=== PATIENT | female | born 1975 ===

== ENCOUNTER 2020-05-08 05:40 | Inpatient (IN) ==
[2020-05-08] MEDS ORDERED: Lactated Ringers 1000 ml BAG 1,000 ML IV SCH (06:00)
[2020-05-08] MEDS ORDERED: Buffered Lidocaine 1% SYRIN 1 ml INTRADERM ONE ×2 (06:00→06:18)
[2020-05-08] MEDS ORDERED: Famotidine IV 10 MG/ML 2 ml VIAL (20 mg) IV ONE (06:00)
[2020-05-08] MEDS ORDERED: Dexamethasone IV 4 MG/ML VIAL 1 ml VIAL IV SLOW PU ONE (06:00)
[2020-05-08] MEDS ORDERED: ceFAZolin 2 GM PREMIX 2 GM/50 ML BAG ONE ×2 (06:08→11:27)
[2020-05-08] MEDS ORDERED: Dexamethasone IV 4 MG/ML VIAL 1 ml VIAL ONE (06:08)
[2020-05-08] MEDS ORDERED: Famotidine IV 10 MG/ML 2 ml VIAL (20 mg) ONE (06:08)
[2020-05-08] MEDS ORDERED: Heparin 5000 UNITS/ML 1 mL VIAL ONE (06:49)
[2020-05-08] MEDS ORDERED: Propofol 10 MG/ML 20 ML BTL ONE (07:07)
[2020-05-08] MEDS ORDERED: Rocuronium 50 mg VIAL 10 mg/ml 5 ml VIAL (50 mg) ONE (07:07)
[2020-05-08] MEDS ORDERED: Lidocaine 2% PF 5 ML VIAL ONE (07:07)
[2020-05-08] MEDS ORDERED: Midazolam 5 mg/5 ml VIAL 1 mg/ml 5 ml VIAL (5 mg) ONE (07:07)
[2020-05-08] MEDS ORDERED: fentaNYL 100 mcg/2 ml 50 MCG/ML VIAL ONE ×3 (07:07→10:31)
[2020-05-08] MEDS ORDERED: Bupivacaine 0.5% 50 ML MDV VIAL ONE (07:16)
[2020-05-08] MEDS ORDERED: oxyCODONE/Acetamin 5/325 mg TAB PO PRN (07:19)
[2020-05-08] MEDS ORDERED: Morphine 4 MG/ML VIAL (1 ml) IV PRN (07:19)
[2020-05-08] MEDS ORDERED: HYDROcodone/ACETAMIN 5/325 mg TAB PO PRN (07:19)
[2020-05-08] MEDS ORDERED: Naloxone 0.4 mg VIAL 0.4 mg/ml 1 ml VIAL IV PRN (07:19)
[2020-05-08] MEDS ORDERED: fentaNYL 100 mcg/2 ml 50 MCG/ML VIAL IV PRN (07:19)
[2020-05-08] MEDS ORDERED: Prochlorperazine 5 mg/ml 2 ml VIAL (10 mg) IV PRN (07:19)
[2020-05-08] MEDS ORDERED: Metoprolol Tartrate 5 mg VIAL 5 ml VIAL (1 mg/ml) ONE (08:30)
[2020-05-08] MEDS ORDERED: EPHEDrine (Pressors) 50 MG/ML VIAL ONE (09:42)
[2020-05-08] MEDS ORDERED: Ondansetron 4 mg VIAL 2 MG/ML 2 ml VIAL ONE (10:39)
[2020-05-08] MEDS ORDERED: Ondansetron 4 mg VIAL 2 MG/ML 2 ml VIAL IV PRN (12:42)
[2020-05-08] MEDS: HYDROcodone/ACETAMIN 5/325 mg TAB PO PRN ×2 (15:10→21:28)
[2020-05-08] MEDS: Benzocaine/Menthol LOZ PO PRN ×2 (15:11→20:12)
[2020-05-08] MEDS: ceFAZolin 2 GM PREMIX 2 GM/50 ML BAG IVPB SCH (20:07)
[2020-05-09] MEDS: ceFAZolin 2 GM PREMIX 2 GM/50 ML BAG IVPB SCH (04:11)
[2020-05-09] MEDS: HYDROcodone/ACETAMIN 5/325 mg TAB PO PRN (04:16)
[2020-05-09] MEDS: Benzocaine/Menthol LOZ PO PRN ×2 (04:16→08:40)
[2020-05-09 08:36] VITALS: BP 98/62
[2020-05-11] MEDS ORDERED: Scopolamine PATCH Remove NOTE PATCH OFF ONE (06:00)
== END 2020-05-09 11:06 | disposition home health service (06) | DRG 362 ==
LOC: AA 05:40 → EDSTATUS 07:30 → SSU 13:34
PROVIDERS: ADMIT Student in an Organized Health Care Education/Training Program; ATTEND Student in an Organized Health Care Education/Training Program